=== PATIENT | female | born 1955 | race Hispanic/Latino ===

== ENCOUNTER 2017-04-01 13:04 | Emergency (ER) | payer MEDICARE, OTHER ==
[2017-04-01 13:08] VITALS: BMI 36.0
[2017-04-01 13:12] VITALS: RESP 18; TEMP 98.9
--- NOTE | 2017-04-01 13:30 | ED PDOC ---
Arrival/HPI - General Chief Complaint: Abdominal Pain Time Seen by Provider: 04/01/17 13:06 Historian: Patient - History of Present Illness Narrative History of Present Illness (Text): 04/01/17 13:27 A 61 year old female whose past medical history includes melanoma, presents to the emergency department whit abdominal pain, vomiting, and diarrhea since 3:00 AM this morning. The patient states that she called a [facility], and that she was advised to some into the emergency department. The patient denies fevers, chills , headache, dizziness, chest pain, shortness of breath, dyspnea on exertion, cough, nausea, back pain, neck pain, urinary/bowel changes, or any other complaint. Time/Duration: Other (This morning) Symptom Onset: Sudden Symptom Course: Unchanged Activities at Onset: Rest, Light Context: Home Past Medical History - Provider Review Nursing Documentation Reviewed: Yes - Infectious Disease Hx of Infectious Diseases: None - Psychiatric Hx Substance Use: No - Surgical History Hx Appendectomy: Yes Hx Cholecystectomy: Yes Other/Comment: Melanoma L shoulder - Anesthesia Hx Anesthesia: Yes Hx Anesthesia Reactions: No Hx Malignant Hyperthermia: No Family/Social History - Physician Review Nursing Documentation Reviewed: Yes Family/Social History: No Known Family HX Smoking Status: Never Smoked Hx Alcohol Use: No Hx Substance Use: No Allergies/Home Meds Allergies/Adverse Reactions: Allergies No Known Allergies Allergy (Verified 04/01/17 13:08) Review of Systems - Physician Review All systems were reviewed & negative as marked: Yes - Review of Systems Constitutional: absent: Fevers, Night Sweats ENT: absent: Sore Throat Respiratory: absent: SOB, Cough Cardiovascular: absent: Chest Pain, CHÁVEZ Gastrointestinal: Abdominal Pain, Diarrhea, Vomiting. absent: Stool Changes, Nausea Genitourinary Female: absent: Urine Output Changes Musculoskeletal: absent: Back Pain, Neck Pain Neurological: absent: Headache, Dizziness Physical Exam Vital Signs Reviewed: Yes Vital Signs Temp Pulse Resp BP Pulse Ox 04/01/17 15:17 90 18 136/88 98 04/01/17 13:12 98.9 F 92 H 18 149/81 96 Temperature: Afebrile Blood Pressure: Normal Pulse: Tachycardic Respiratory Rate: Normal Appearance: Positive for: Well-Appearing, Non-Toxic, Comfortable Pain Distress: None Mental Status: Positive for: Alert and Oriented X 3 - Systems Exam Head: Present: Atraumatic, Normocephalic Pupils: Present: PERRL Extroacular Muscles: Present: EOMI Conjunctiva: Present: Normal Mouth: Present: Moist Mucous Membranes Neck: Present: Normal Range of Motion Respiratory/Chest: Present: Clear to Auscultation, Good Air Exchange. No: Respiratory Distress, Accessory Muscle Use Cardiovascular: Present: Regular Rate and Rhythm, Normal S1, S2. No: Murmurs Abdomen: Present: Normal Bowel Sounds. No: Tenderness, Distention, Peritoneal Signs Back: Present: Normal Inspection Upper Extremity: Present: Normal Inspection. No: Cyanosis, Edema Lower Extremity: Present: Normal Inspection. No: Edema Neurological: Present: GCS=15, CN II-XII Intact, Speech Normal Skin: Present: Warm, Dry, Normal Color. No: Rashes Psychiatric: Present: Alert, Oriented x 3, Normal Insight, Normal Concentration Medical Decision Making ED Course and Treatment: 04/01/17 13:32 Impression: A 61 year old female presents to the emergency department with abdominal pain, vomiting, and diarrhea. Plan: -- EKG -- Chest X-ray -- Urinalysis -- Labs -- Reassess and disposition Progress Notes: EKG: Ordered, reviewed, and independently interpreted the EKG. Rate : 76 BPM Rhythm : NSR Interpretation : Non- specific ST/T-wave changes. CHEST X-RAY Dictator : Raymond Morrow MD Report Date : 04/01/2017 14:16:08 IMPRESSION: No active disease. - Lab Interpretations Lab Results: 04/01/17 13:46 04/01/17 13:46 Lab Results 04/01/17 13:46: Sodium 143, Potassium 4.3, Chloride 107, Carbon Dioxide 25, Anion Gap 15, BUN 17, Creatinine 0.8, Est GFR ( Amer) > 60, Est GFR (Non- Af Amer) > 60, Random Glucose 118 H, Calcium 9.5, Total Bilirubin 0.4, AST 30, ALT 35, Alkaline Phosphatase 70, Lactate Dehydrogenase 541, Total Creatine Kinase 89, Troponin I < 0.01, Total Protein 8.0, Albumin 4.6, Globulin 3.3, Albumin/Globulin Ratio 1.4, Amylase 53, Lipase 55 04/01/17 13:46: Urine Color Yellow, Urine Appearance Sl cloudy, Urine pH 5.5, Ur Specific [place] 1.025, Urine Protein Negative, Urine Glucose (UA) Negative, Urine Ketones Negative, Urine Blood Trace-intact H, Urine Nitrate Negative, Urine Bilirubin Negative, Urine Urobilinogen 0.2, Ur Leukocyte Esterase Small H , Urine RBC 0 - 2, Urine WBC 1 - 3, Ur Epithelial Cells 4 - 5, Urine Bacteria Trace, Hyaline Casts 2 - 5 04/01/17 13:46: PT 9.8 L, INR 0.91 L, APTT 25.2 04/01/17 13:46: WBC 13.0 H, RBC 4.57, Hgb 13.1, Hct 39.3, MCV 86.0, MCH 28.7, MCHC 33.3, RDW 13.0, Plt Count 266, MPV 10.0, Gran % 79.2 H, Lymph % (Auto) 13.7 L, [place] % (Auto) 6.0, Eos % (Auto) 0.9 L, Baso % (Auto) 0.2, Gran # 10.31 H , Lymph # 1.8, [place] # 0.8 H, Eos # 0.1, Baso # 0.02 I have reviewed the lab results: Yes - RAD Interpretation Radiology Orders: 04/01/17 13:25 CHEST PORTABLE [RAD] Stat 04/01/17 14:19 ABD & PELVIS IV CONTRAST ONLY [CT] Stat - EKG Interpretation Interpreted by ED Physician: Yes Type: 12 lead EKG - Medication Orders Current Medication Orders: Discontinued Medications Ciprofloxacin (Cipro) 500 mg PO ONCE STA PRN Reason: Protocol Stop: 04/01/17 16:01 Last Admin: 04/01/17 16:16 Dose: 500 mg Metronidazole (Flagyl) 500 mg PO STAT STA PRN Reason: Protocol Stop: 04/01/17 16:01 Last Admin: 04/01/17 16:16 Dose: 500 mg - Scribe Statement The provider has reviewed the documentation as recorded by the Hoa Tracy Provider Hoa Attestation: All medical record entries made by the Joseibleo were at my direction and personally dictated by me. I have reviewed the chart and agree that the record accurately reflects my personal performance of the history, physical exam, medical decision making, and the department course for this patient. I have also personally directed, reviewed, and agree with the discharge instructions and disposition. Disposition/Present on Arrival - Present on Arrival Any Indicators Present on Arrival: No History of DVT/PE: No History of Uncontrolled Diabetes: No Urinary Catheter: No History of Decub. Ulcer: No History Surgical Site Infection Following: None - Disposition Have Diagnosis and Disposition been Completed?: Yes Diagnosis: Enteritis Disposition: HOME/ ROUTINE Disposition Time: 05:00 Patient Problems: Current Active Problems Problem Status Onset Enteritis Acute Condition: STABLE Discharge Instructions (ExitCare): Enteritis (ED) Additional Instructions: return to er with worsening symptosm or concerns. please see specialist. Prescriptions: Ciprofloxacin [Cipro] 500 mg PO BID #14 tab metroNIDAZOLE [Flagyl] 500 mg PO TID #21 tab Referrals: PCP,NO [Primary Care Provider] - Follow up with primary Saad Tobias MD [Staff Provider] - Follow up with primary Forms: [employer] (Slovenian)
[2017-04-01 14:00] LABS: ALB/GLOB RATIO 1.4 (1.1-1.8); ALKALINE PHOSPHATASE 70 U/L (38-126); ALT/SGPT 35 U/L (7-56); AMYLASE 53 U/L (35-125); AST/SGOT 30 U/L (14-36); BILIRUBIN,TOTAL 0.4 mg/dL (0.2-1.3); BLOOD UREA NITROGEN 17 mg/dL (7-21); CALCIUM 9.5 mg/dL (8.4-10.5); CARBON DIOXIDE 25 mmol/L (21-33); CHLORIDE 107 mmol/L (98-107); GFR AFRICAN-AMERICAN > 60; GLUCOSE,RANDOM 118 mg/dL (70-110); LIPASE 55 U/L (23-300); POTASSIUM 4.3 mmol/L (3.6-5.0); SODIUM 143 mmol/L (132-148)
[2017-04-01 14:06] LABS: BASO # 0.02 K/mm3 (0.0-2.0); BASO % 0.2 % (0.0-3.0); EOS # 0.1 (0.0-0.7); EOS % 0.9 % (1.5-5.0); GRAN # 10.31 (1.4-6.5); GRAN % 79.2 % (50.0-68.0); HEMATOCRIT 39.3 % (36.0-48.0); LYMPH # 1.8 (1.2-3.4); LYMPH % 13.7 % (22.0-35.0); MEAN CORPUSCULAR HEMOGLOBIN 28.7 pg (25.0-35.0); MEAN CORPUSCULAR HGB CONC 33.3 g/dl (31.0-37.0); MONO # 0.8 (0.1-0.6)
[2017-04-01 14:08] LABS: PH,URINE 5.5 (4.7-8.0); URINE BILIRUBIN NEGATIVE (NEGATIVE); URINE BLOOD TRACE-INTACT (NEGATIVE); URINE GLUCOSE (UA) NEGATIVE (NEGATIVE); URINE KETONE NEGATIVE (NEGATIVE); URINE LEUKOCYTE ESTERASE SMALL Leu/uL (NEGATIVE); URINE PROTEIN NEGATIVE mg/dL (<30 mg/dL); URINE UROBILINOGEN 0.2 E.U./dL (<1 E.U./dL)
[2017-04-01 14:10] LABS: URINE APPEARANCE SL CLOUDY (CLEAR); URINE COLOR YELLOW (YELLOW)
[2017-04-01 14:11] LABS: INR 0.91 (0.93-1.08); PARTIAL THROMBOPLASTIN TIME 25.2 Seconds (23.7-30.8); TROPONIN I < 0.01 ng/mL
--- NOTE | 2017-04-01 14:17 | RAD ---
HISTORY: abd pain/cough COMPARISON: No prior. FINDINGS: LUNGS: No active pulmonary disease. PLEURA: No significant pleural effusion identified, no pneumothorax apparent. CARDIOVASCULAR: Normal. OSSEOUS STRUCTURES: No significant abnormalities. VISUALIZED UPPER ABDOMEN: Normal. OTHER FINDINGS: None. IMPRESSION: No active disease.
[2017-04-01 14:19] LABS: URINE RBC 0 - 2 /hpf (0-2)
[2017-04-01 14:20] LABS: URINE BACTERIA TRACE (NEG)
[2017-04-01 15:17] VITALS: BP 136/88; PULSE 90; O2SAT 98
--- NOTE | 2017-04-01 15:55 | CT ---
PROCEDURE: CT Abdomen and Pelvis with contrast HISTORY: abd pain, diarrhea COMPARISON: CT abdomen and pelvis performed 12/07/10. TECHNIQUE: Contrast dose: Omnipaque 350 Radiation dose: Total exam DLP = 1200.96 MGy-cm. This CT exam was performed using one or more of the following dose reduction techniques: Automated exposure control, adjustment of the mA and/or kV according to patient size, and/or use of iterative reconstruction technique. FINDINGS: LOWER THORAX: No visible consolidation, pleural effusion, or pneumothorax. LIVER: 6 mm left hepatic lobe hypodensity, too small to characterize; statistically likely cyst or hemangioma. Hypoattenuation of the liver compatible with hepatic steatosis. Hepatomegaly. GALLBLADDER AND BILE DUCTS: Cholecystectomy. PANCREAS: Unremarkable. SPLEEN: Unremarkable. ADRENALS: Unremarkable. KIDNEYS AND URETERS: The kidneys enhance symmetrically. No hydronephrosis or obstructing calculus identified. VASCULATURE: No aortic aneurysm. BOWEL: Stomach is nondistended. Lack of oral contrast limits evaluation for bowel pathology. Bowel loops appear within normal limits of caliber without evidence of obstruction. Mild small bowel wall thickening particularly in the right lower quadrant; correlate for enteritis. APPENDIX: The appendix is not identified. No secondary signs of acute appendicitis. PERITONEUM: No significant free fluid. No definite free air. LYMPH NODES: No bulky adenopathy identified. BLADDER: Unremarkable. REPRODUCTIVE: The uterus is identified. BONES: Ratib changes. Vacuum disc phenomenon at L5-S1. OTHER FINDINGS: None. IMPRESSION: Mild small bowel wall thickening particularly in the right lower quadrant; correlate for enteritis. 6 mm left hepatic lobe hypodensity, too small to characterize; statistically likely cyst or hemangioma. Hepatic steatosis. Hepatomegaly. Cholecystectomy.
--- NOTE | 2017-04-02 14:29 | CARD ---
APPROVED REPORT EKG Measurement Heart [id number] HI 176P61 [id number] <Conclusion> Normal sinus rhythm Low voltage QRS Cannot rule out Anterior infarct, age undetermined Abnormal ECG
== END 2017-04-01 16:20 | disposition home or self-care (01) ==
LOC: ED 13:04
DX: K52.9 Noninfective gastroenteritis and colitis, unspecified (principal)
CPT/HCPCS: 71010; 74177; 80053; 81001; 82150; 82550; 83615; 83690; 84484; 85025; 85610; 85730; 87086; 93005; 99284; Q9967

== ENCOUNTER 2017-10-15 13:05 | Emergency (ER) | payer MEDICARE, OTHER ==
[2017-10-15 13:05] VITALS: BMI 36.0
[2017-10-15 13:40] VITALS: RESP 18
[2017-10-15] MEDS ORDERED: Albuterol-Ipratrop 3 mg / 0.5 (3 ml) UD IH STA (13:44)
[2017-10-15] MEDS ORDERED: Sodium Chloride 0.9% 1,000 ML IV STA (13:44)
--- NOTE | 2017-10-15 13:50 | ED PDOC ---
Arrival/HPI - General Chief Complaint: Flu-like Symptoms Time Seen by Provider: 10/15/17 13:43 Historian: Patient - History of Present Illness Narrative History of Present Illness (Text): 10/15/17 13:35 Pt p/w + ~ 1 week onset of initially dry coughing with intermittent productive sputum (non-bloody/king in color); pt states over the last 3 days, she felt worse; pt states her voice began to change 3 days ago (becoming hoarse), and 2 days ago pt with intermittent fever with Tmax ~ 101; pt also noted chills/ extreme sweats/shaking; + severe chest burning, + throat pain, + mild sob, + runny nose, + diffuse body aches/pain; + frontal headaches; pt states pain is rated at ~ 6-7/10 diffusely; pt states no light-sensitivity, no palpitations, no abd pain, no n/v, no appetite changes, no numbness/tingling, no urinary/ bowel changes, no gross bleeding, no fall/trauma/travel, + sick contact 2 weeks ago; pt states mild dizziness/lightheadedness, no LOC pt denied other complaints pt is here for further eval. PCP: NONE no recent flu shoot pt has a hx of high cholesterol - not on meds (pt is not compliant) Time/Duration: < week Symptom Onset: Sudden Symptom Course: Worsening Quality: Pressure, Stabbing, Cramping, Burning Severity Level: 7, Severe Activities at Onset: Rest Context: Home Past Medical History - Provider Review Nursing Documentation Reviewed: Yes - Travel History Have you recently traveled outside [place] w/in the past 3 mons?: No - Past History Past History: No Previous - Infectious Disease Hx of Infectious Diseases: None - Tetanus Immunization Tetanus Immunization: Unknown - Reproductive Menopause: Yes Currently : No - Psychiatric Hx Substance Use: No - Surgical History Hx Appendectomy: Yes Hx Cholecystectomy: Yes Other/Comment: Melanoma L shoulder - Anesthesia Hx Anesthesia: Yes Hx Anesthesia Reactions: No Hx Malignant Hyperthermia: No Family/Social History - Physician Review Nursing Documentation Reviewed: Yes Family/Social History: No Known Family HX Smoking Status: Never Smoked Hx Alcohol Use: No Hx Substance Use: No Hx Substance Use Treatment: No Allergies/Home Meds Allergies/Adverse Reactions: Allergies No Known Allergies Allergy (Verified 10/15/17 13:34) Review of Systems - Review of Systems Constitutional: Fatigue, Fevers, Night Sweats Eyes: Normal ENT: Voice Changes, Rhinorrhea. absent: Hearing Changes, Sore Throat Respiratory: SOB, Cough, Sputum. absent: Wheezing Cardiovascular: Chest Pain Gastrointestinal: Normal. absent: Abdominal Pain, Nausea, Vomiting Genitourinary Female: Normal Musculoskeletal: Arthralgias, Back Pain, Myalgias. absent: Neck Pain, Joint Swelling Skin: Normal. absent: Rash Neurological: Headache, Dizziness Endocrine: Normal Hemo/Lymphatic: Normal Psychiatric: Normal Physical Exam Vital Signs Reviewed: Yes Vital Signs Temp Pulse Resp BP Pulse Ox 10/15/17 15:03 100.1 F H 10/15/17 13:59 145/88 10/15/17 13:58 102.6 F H 10/15/17 13:32 102.7 F H 103 H 18 181/95 H 97 Temperature: Febrile Blood Pressure: Hypertensive Pulse: Tachycardic Respiratory Rate: Normal Appearance: Positive for: Well-Appearing, Uncomfortable, Other (uncomfortable, alert/awake, GCS = 15, oriented x 3, mild distress due to pain, cooperative) Pain Distress: Mild Mental Status: Positive for: Alert and Oriented X 3 - Systems Exam Head: Present: Atraumatic, Normocephalic Pupils: Present: PERRL, Other (no photophobia, sclera anicteric, no nystagmus, visual field intact b/l) Extroacular Muscles: Present: EOMI Conjunctiva: Present: Normal Ears: Present: Normal Mouth: Present: Dry, Normal Teeth, Other (uvula/tongue are midline, no exudate/ lesions, no drooling/stridor, mild dry oral mucosa) Pharnyx: Present: Normal Nose (External): Present: Atraumatic Nose (Internal): Present: Normal Inspection Neck: Present: Normal Range of Motion, Trachea Midline, Other (no midline tenderness, no masses/rebound/guarding/rigidity, no step off, no nuchal rigidity ). No: Meningeal Signs, MIDLINE TENDERNESS, Paraspinal Tenderness Respiratory/Chest: Present: Clear to Auscultation, Good Air Exchange, Decreased Breath Sounds, Other (+ b/l decr breath sounds, no w/r/r, no tachypenia, no accessory muscle use noted). No: Respiratory Distress, Accessory Muscle Use, Tender to Palpation Cardiovascular: Present: Normal S1, S2, Tachycardic, Other (+ tachycardic; no regurg/murmur). No: Murmurs Abdomen: Present: Normal Bowel Sounds, Other (well nourished/slightly obese female, no focal tenderness, no masses/rebound/guarding/rigidity, no newman's sign, no mcburney's point tenderness). No: Tenderness, Distention Back: Present: Normal Inspection. No: CVA Tenderness, Midline Tenderness, Paraspinal Tenderness Upper Extremity: Present: Normal Inspection, Normal ROM, NORMAL PULSES, Neurovascularly Intact Lower Extremity: Present: Normal Inspection, Edema (+1-2/5 b/l lower extremity pitting edema up to mid tib/fib; neurovasc intact b/l, strength 5/5 grossly intact b/l, + ambulatory), NORMAL PULSES, Normal ROM, Neurovascularly Intact, Other (strength 5/5 grossly intact in all limbs, neurovasc intact b/l, + 2/5 b/ l lower ext pitting edema). No: Kristie's Sign, Tenderness, Swelling Neurological: Present: GCS=15, CN II-XII Intact, Speech Normal Skin: Present: Warm, Other (dry/warm, cap refill ~ 1 sec, no ulcerations, no petechiae, no rashes noted). No: Pale Psychiatric: Present: Alert, Oriented x 3 Medical Decision Making ED Course and Treatment: 10/15/17 1350 Impression: fever/diffuse body pain i have consider all the differential diagnosis regarding pt's chief medical complaints/clinical findings, including but are not limited to: r/o viral vs bacterial lung infection, r/o sepsis A/P: fever, diffuse body pain - labs - iv - cultures - xray - supportive care - observe/reevaluation 10/15/17 15:41 pt is doing well currently, resting in bed, awaiting rest of her lab results 10/15/17 16:10 pt is doing well pt is comfortable after nebs, lung re-eval: CTA b/l, no w/r/r, no tachypenia pt is made aware of her medical results given pt's abnl vital signs but normal lab results/xray results, and pt's improving symptoms, pt maybe able to be discharged home pt is resting, will decide on final disposition 10/15/17 17:18 pt felt improved pt states she does not feel as sick as before pt states she does feel stuffy/congested pt's vital signs are much improved pt has thought about her disposition, pt states she would prefer to be at home and try outpt mangement first, and does not want to be admitted pt is made aware of her medical results pt is encouraged fluids pt is encouraged outpt f/u [facility] pt will be discharged home Re-evaluation Time: 16:20 Reassessment Condition: Improving,but remains with symptoms - Lab Interpretations Lab Results: 10/15/17 14:02 10/15/17 14:02 Lab Results 10/15/17 14:02: Influenza Typ A,B (EIA) Negative for flu a/b, Grp A Beta Strep Ag Negative 10/15/17 14:02: Sodium 139, Chloride 103, Potassium 4.5, Carbon Dioxide 21, Anion Gap 19, BUN 14, Creatinine 0.8, Est GFR ( Amer) > 60, Est GFR (Non- Af Amer) > 60, Random Glucose 127 H, Calcium 9.4, Phosphorus 3.5, Magnesium 1.9 , Total Bilirubin 0.3, AST 32, ALT 29, Alkaline Phosphatase 81, Troponin I < 0.01, NT-Pro-B Natriuret Pep 29.8, Total Protein 8.2, Albumin 4.7, Globulin 3.5 , Albumin/Globulin Ratio 1.4 10/15/17 14:02: pO2 169 H, VBG pH 7.41, VBG pCO2 37.0 L, VBG HCO3 23.5, VBG Total CO2 24.6, VBG O2 Sat (Calc) 98.4 H, VBG Base Excess -0.8 L, VBG Potassium 4.4, Sodium 136.0, Chloride 105.0, Glucose 130 H, Lactate 1.2, FiO2 21.0, Venous Blood Potassium 4.4 10/15/17 14:02: PT 12.2, INR 1.07, APTT 29.9 10/15/17 14:02: WBC 8.9 D, RBC 4.78, Hgb 13.4, Hct 40.2, MCV 84.1, MCH 28.0, MCHC 33.3, RDW 13.6, Plt Count 218, MPV 9.9, Gran % 64.2, Lymph % (Auto) 19.7 L , [place] % (Auto) 15.8 H, Eos % (Auto) 0.2 L, Baso % (Auto) 0.1, Gran # 5.73, Lymph # (Auto) 1.8, [place] # (Auto) 1.4 H, Eos # (Auto) 0.0, Baso # (Auto) 0.01 I have reviewed the lab results: Yes Interpretation: All labs normal - RAD Interpretation Narrative RAD Interpretations (Text): 10/15/17 16:06 HISTORY: Sepsis Patient COMPARISON: 04/01/2017 TECHNIQUE: Chest PA and lateral FINDINGS: LUNGS: No active pulmonary disease. PLEURA: No significant pleural effusion identified. No pneumothorax apparent. CARDIOVASCULAR: Normal. OSSEOUS STRUCTURES: No significant abnormalities. VISUALIZED UPPER ABDOMEN: Normal. OTHER FINDINGS: None. IMPRESSION: No active disease. Radiology Orders: 10/15/17 13:43 CHEST TWO VIEWS (PA/LAT) [RAD] Stat Candle Cutter: Radiologist - EKG Interpretation EKG Interpretation (Text): 10/15/17 17:25 NSR at 85 bpm, normal axis, no ectopy, diffuse low voltage, qs in leads V1/V3, inverted T in leads V1-2, no st changes, ABNL EKG; unchanged compare with old ekg 03/2017 Interpreted by ED Physician: Yes Type: 12 lead EKG Comparison: Similar to previous EKG - Medication Orders Current Medication Orders: Azithromycin (Zithromax 500mg In Ns) 500 mg in 250 mls @ 167 mls/hr IVPB STAT STA PRN Reason: Protocol Stop: 10/15/17 17:36 Discontinued Medications Acetaminophen (Tylenol 325mg Tab) 650 mg PO STAT STA Stop: 10/15/17 13:44 Last Admin: 10/15/17 13:58 Dose: 650 mg MAR Pain/Vitals Document 10/15/17 13:58 EWO (Rec: 10/15/17 13:58 RENUO [id number]) Vitals Temperature (97.6 F-99.6 F) 102.6 F Temperature Source Oral Albuterol/Ipratropium (Duoneb 3 Mg/0.5 Mg (3 Ml) Ud) 3 ml IH STAT STA Stop: 10/15/17 13:45 Last Admin: 10/15/17 13:58 Dose: 3 ml Sodium Chloride (Sodium Chloride 0.9%) 1,000 mls @ 999 mls/hr IV .Q1H1M STA Stop: 10/15/17 14:44 Last Admin: 10/15/17 13:59 Dose: 999 mls/hr eMAR Start Stop Document 10/15/17 13:59 EWO (Rec: 10/15/17 13:59 [facility] [id number]) Intravenous Solution Start Date 10/15/17 Start Time 13:59 End Date 10/15/17 End time 14:59 Total Infusion Time 60 Ceftriaxone Sodium (Rocephin 1 Gram Ivpb) 1 gm in 100 mls @ 200 mls/hr IVPB STAT STA PRN Reason: Protocol Stop: 10/15/17 16:35 Last Admin: 10/15/17 16:41 Dose: 200 mls/hr eMAR Start Stop Document 10/15/17 16:41 EWO (Rec: 10/15/17 16:42 [facility] [id number]) Intravenous Solution Start Date 10/15/17 Start Time 16:41 End Date 10/15/17 End time 17:11 Total Infusion Time 30 Ketorolac Tromethamine (Toradol) 15 mg IVP STAT STA Stop: 10/15/17 13:45 Last Admin: 10/15/17 13:58 Dose: 15 mg MAR Pain Assessment Document 10/15/17 13:58 EWO (Rec: 10/15/17 13:59 [facility] [id number]) Pain Reassessment Is this a pain reassessment? No Sleep Is patient sleeping during reassessment? No Presence of Pain Presence of Pain Yes Pain Scale Used Pain Scale Used Numeric IVP Administration Document 10/15/17 13:58 EWO (Rec: 10/15/17 13:59 [facility] [id number]) Charges for Administration # of IVP Administrations 1 - Scribe Statement The provider has reviewed the documentation as recorded by the Scribleo Orta All medical record entries made by the Scribe were at my direction and personally dictated by me. I have reviewed the chart and agree that the record accurately reflects my personal performance of the history, physical exam, medical decision making, and the department course for this patient. I have also personally directed, reviewed, and agree with the discharge instructions and disposition. Disposition/Present on Arrival - Present on Arrival Any Indicators Present on Arrival: No History of DVT/PE: No History of Uncontrolled Diabetes: No Urinary Catheter: No History of Decub. Ulcer: No History Surgical Site Infection Following: None - Disposition Have Diagnosis and Disposition been Completed?: Yes Diagnosis: Bronchitis, Dehydration, Congestion of upper airway, Cough Disposition: HOSPITALIZED Disposition Time: 18:30 Patient Plan: Discharge Patient Problems: Current Active Problems Problem Status Onset Bronchitis Acute Congestion of upper airway Acute Cough Acute Dehydration Acute Condition: STABLE Discharge Instructions (ExitCare): Dehydration, Adult (DC), Flu, Adult (DC), Acute Bronchitis Print Language: TUNISIAN Additional Instructions: Make sure to see your doctor in 1-2 days DRINK PLENTY OF FLUIDS take your medications as prescribed RETURN TO ED IF worse pain, cant breath, persistent vomiting, high fever >101- 102 for hours, altered behavior, slurr speech, facial changes, focal weakness ( arm/leg or both), unable to urinate, heavy/persistent bleeding, passing out, chest pain, or other medical emergencies Prescriptions: Acetaminophen [Tylenol 325mg tab] 650 mg PO Q4H PRN #40 tab PRN Reason: Fever >100.4 F Azithromycin [Zithromax] 250 mg PO DAILY #4 tab guaiFENesin/Dextromethorphan [guaiFENesin-DM] 10 ml PO TID PRN #100 ml PRN Reason: Cough Ibuprofen [Motrin] 600 mg PO QID PRN #30 tab PRN Reason: Fever >100.4 F Referrals: [facility] [Outside] - Follow up with primary Theresa Contreras MD [Staff Provider] - Follow up with primary Forms: [employer] (Andorran)
[2017-10-15 14:08] LABS: BASO # 0.01 K/mm3 (0.0-2.0); BASO % 0.1 % (0.0-3.0); EOS % 0.2 % (1.5-5.0); GRAN # 5.73 (1.4-6.5); GRAN % 64.2 % (50.0-68.0); HEMOGLOBIN 13.4 g/dL (12.0-16.0); LYMPH # 1.8 (1.2-3.4); LYMPH % 19.7 % (22.0-35.0); MEAN CELL VOLUME 84.1 fl (80.0-105.0); MEAN CORPUSCULAR HGB CONC 33.3 g/dl (31.0-37.0); MEAN PLATELET VOLUME 9.9 fl (7.0-11.0); MONO # 1.4 (0.1-0.6); MONO % 15.8 % (1.0-6.0); RBC 4.78 10^6/uL (3.5-6.1); RED CELL DISTRIBUTION WIDTH 13.6 % (11.5-14.5); WHITE BLOOD COUNT 8.9 10^3/ul (4.5-11.0)
[2017-10-15 14:11] LABS: VENOUS BLOOD GAS BASE EXCESS -0.8 mmol/L (0.0-2.0); VENOUS BLOOD GAS PO2 169 mm/Hg (30-55); VENOUS BLOOD PH 7.41 (7.32-7.43)
[2017-10-15 14:17] LABS: INR 1.07 (0.93-1.08); PARTIAL THROMBOPLASTIN TIME 29.9 Seconds (25.1-36.5); PROTHROMBIN TIME 12.2 SECONDS (9.4-12.5)
[2017-10-15 14:24] LABS: ALB/GLOB RATIO 1.4 (1.1-1.8); ALBUMIN 4.7 g/dL (3.0-4.8); ALT/SGPT 29 U/L (7-56); AST/SGOT 32 U/L (14-36); BLOOD UREA NITROGEN 14 mg/dL (7-21); CALCIUM 9.4 mg/dL (8.4-10.5); GFR AFRICAN-AMERICAN > 60; GFR NON-AFRICAN AMERICAN > 60
[2017-10-15 14:35] LABS: B-TYPE NATRIURETIC PEPTIDE 29.8 pg/mL (0-450); TROPONIN I < 0.01 ng/mL
[2017-10-15 14:46] LABS: INFLUENZA A B NEGATIVE FOR FLU A/B (NEGATIVE)
--- NOTE | 2017-10-15 15:38 | RAD ---
HISTORY: Sepsis Patient COMPARISON: 04/01/2017 TECHNIQUE: Chest PA and lateral FINDINGS: LUNGS: No active pulmonary disease. PLEURA: No significant pleural effusion identified. No pneumothorax apparent. CARDIOVASCULAR: Normal. OSSEOUS STRUCTURES: No significant abnormalities. VISUALIZED UPPER ABDOMEN: Normal. OTHER FINDINGS: None. IMPRESSION: No active disease.
[2017-10-15] MEDS ORDERED: cefTRIAXone 1 gm 1 GM/100 ML BAG IVPB STA (16:06)
[2017-10-15] MEDS ORDERED: Azithromycin 500MG/NS 250ml 500 MG/250 ML BAG IVPB STA (16:07)
[2017-10-15 19:58] VITALS: BP 126/58; PULSE 83; TEMP 99; O2SAT 96
--- NOTE | 2017-10-16 22:48 | CARD ---
APPROVED REPORT EKG Measurement Heart [id number] [place] 182P68 [id number] <Conclusion> Normal sinus rhythm Low voltage QRS Cannot rule out Anterior infarct, age undetermined Abnormal ECG
== END 2017-10-15 19:50 | disposition home or self-care (01) ==
LOC: ED 13:05
DX: J40 Bronchitis, not specified as acute or chronic (principal); E86.0 Dehydration; R09.89 Other specified symptoms and signs involving the circulatory and respiratory systems; R05 Cough; E78.00 Pure hypercholesterolemia, unspecified
CPT/HCPCS: 71046; 80053; 82803; 83735; 83880; 84100; 84145; 84484; 85025; 85610; 85730; 87040; 87070; 87430; 87804; 93005; 96361; 96365; 96367; 96375; 99284; J0456; J0696; J1885; J7040

== ENCOUNTER 2018-05-01 11:07 | Emergency (ER) | payer MEDICARE ==
[2018-05-01 11:07] VITALS: BMI 36.0
[2018-05-01 11:23] VITALS: BP 156/90
--- NOTE | 2018-05-01 11:23 | ED PDOC ---
Arrival/HPI - General Chief Complaint: Cough, Cold, Congestion Time Seen by Provider: 05/01/18 11:07 Historian: Patient - History of Present Illness Time/Duration: 1 week Symptom Onset: Gradual Symptom Course: Worsening Severity Level: Moderate Associated Symptoms (Text): 05/01/18 11:20 Patient complains of approximately a one-week history of cough congestion and URI symptoms sinus pain and pressure and congestion with sore throat. No sputum production. No dyspnea. No chest pain. No fever or chills. No travel or exposure. She does not appear ill. She is requesting antibiotics. Past Medical History - Past History Past History: No Previous - Infectious Disease Hx of Infectious Diseases: None - Tetanus Immunization Tetanus Immunization: Unknown - Pulmonary Hx Bronchitis: Yes - Psychiatric Hx Substance Use: No - Surgical History Hx Appendectomy: Yes Hx Cholecystectomy: Yes Other/Comment: Melanoma L shoulder - Anesthesia Hx Anesthesia: Yes Hx Anesthesia Reactions: No Hx Malignant Hyperthermia: No Family/Social History - Physician Review Nursing Documentation Reviewed: Yes Family/Social History: Unknown Family HX Smoking Status: Former Smoker (quit smoking 30 years ago) Hx Alcohol Use: No Hx Substance Use: No Hx Substance Use Treatment: No Allergies/Home Meds Allergies/Adverse Reactions: Allergies No Known Allergies Allergy (Verified 10/15/17 13:34) Review of Systems - Physician Review All systems were reviewed & negative as marked: Yes - Review of Systems Constitutional: absent: Fatigue, Fevers ENT: Sore Throat, Rhinorrhea Respiratory: Cough. absent: SOB, Sputum, Wheezing Cardiovascular: absent: Chest Pain Gastrointestinal: absent: Abdominal Pain, Diarrhea, Vomiting Physical Exam Vital Signs Temp Pulse Resp BP Pulse Ox 05/01/18 11:10 97.8 F 95 H 18 173/77 H 96 Temperature: Afebrile Blood Pressure: Normal Pulse: Regular Respiratory Rate: Normal Appearance: Positive for: Well-Appearing, Non-Toxic, Comfortable Pain Distress: None Mental Status: Positive for: Alert and Oriented X 3 - Systems Exam Head: Present: Atraumatic, Normocephalic Pupils: Present: PERRL Extroacular Muscles: Present: EOMI Conjunctiva: Present: Normal Ears: Present: NORMAL TM, Normal Canal. No: Erythema, TM Bulging Mouth: No: Moist Mucous Membranes Pharnyx: No: ERYTHEMA, EXUDATE, TONSILS ENLARGED Neck: Present: Normal Range of Motion Respiratory/Chest: Present: Clear to Auscultation, Good Air Exchange. No: Respiratory Distress, Accessory Muscle Use Cardiovascular: Present: Regular Rate and Rhythm, Normal S1, S2. No: Murmurs Skin: Present: Warm, Dry, Normal Color. No: Rashes Disposition/Present on Arrival - Present on Arrival Any Indicators Present on Arrival: No History of DVT/PE: No History of Uncontrolled Diabetes: No Urinary Catheter: No History of Decub. Ulcer: No History Surgical Site Infection Following: None - Disposition Have Diagnosis and Disposition been Completed?: Yes Diagnosis: Upper respiratory infection, Bronchitis Disposition: HOME/ ROUTINE Disposition Time: 11:22 Patient Plan: Discharge Condition: GOOD Discharge Instructions (ExitCare): Acute Bronchitis Additional Instructions: Symptomatic treatment. Tylenol or Advil as directed on bottle as needed. Follow- up with PMD. Hypertension check with PMD. Follow up in ER as needed. Prescriptions: Benzonatate [Tessalon Perles] 100 mg PO Q8 #30 sgl Azithromycin [Zithromax] 250 mg PO DAILY #6 tab
[2018-05-01 11:28] VITALS: PULSE 75; RESP 19; TEMP 97.5; O2SAT 98
== END 2018-05-01 11:33 | disposition home or self-care (01) ==
LOC: ED 11:07
DX: J40 Bronchitis, not specified as acute or chronic (principal); J06.9 Acute upper respiratory infection, unspecified; Z87.891 Personal history of nicotine dependence

== ENCOUNTER 2018-07-27 14:20 | Outpatient (CLI) | payer MEDICARE, OTHER | END 2018-07-27 14:21 | disposition home or self-care (01) | LOC: RAD 14:21 ==